=== PATIENT | male | born 1965 | race Two or more races ===

== ENCOUNTER → 2025-02-09 | Outpatient (CLI) | payer MEDICAID, SELFPAY ==
--- NOTE | 2025-02-09 14:01 | XR_ITS ---
Shoulder bilateral, 6 views Technique: Shoulder AP internal rotation, AP external rotation, Y view each shoulder total 6 views Exam date and time :12/16/2024, 1434 hrs. Indications: Shoulder pain beginning 2018. Findings: No fracture or dislocation involving either shoulder Mild to moderate narrowing glenohumeral joints No AC joint separation. No calcific tendinitis Impression: [id number] narrowing glenohumeral joints
== END | disposition home or self-care (01) ==
PROVIDERS: PCP Nurse Practitioner; Referring Provider Nurse Practitioner; Visit Provider Nurse Practitioner
DX: M25.812 Other specified joint disorders, left shoulder (principal); M25.811 Other specified joint disorders, right shoulder
CPT/HCPCS: 73030

== ENCOUNTER → 2025-06-30 | Outpatient (CLI) | payer MEDICAID, SELFPAY ==
--- NOTE | 2025-06-30 12:00 | XR_ITS ---
MRI shoulder, left, without contrast. Date and time: June 30, 2025 1221 hours INDICATIONS: History shoulder surgery 2019 with persistent pain Technique: Multiple axial, sagittal and coronal sections of the shoulder have been obtained. Siemens high-resolution 1.5 [facility] MRI scanner is utilized. Axial fat-suppressed sections, TR 2350, TE 18 T2-weighted coronal fat-saturated images, TR 3500, TE 7100 T1-weighted coronal images, TR 500, TE 15 T2-weighted sagittal fat-saturated images, TR 3500, TE 57 T1-weighted sagittal sections, TR 504, TE 13. Findings: Supraspinatus tendon insertion is intact. Infraspinatus tendon insertion is intact. Subscapularis insertion is intact. Subscapularis bursa is not seen. Long head of the biceps is in the bicipital groove. No definite tear of the biceps superior labral anchor is seen. Retraction of the musculotendinous junction of the rotator cuff is not seen . Tendinosis pattern is mild. Distance between the acromium and humeral head is 5.4 mm Atrophy of the supraspinatus muscle is mild . Atrophy of the infraspinatus muscle is mild. Sagittal sections demonstrate a horizontal acromion. Acromioclavicular joint demonstrates mild osteoarthritis . Osacromiale is not identified. Mild to moderate osteoarthritis glenohumeral joint Fraying and irregularity anterior superior labral margins. Bony glenoid fossa on the sagittal sections does not demonstrate osseous defect. Occult fracture or area of avascular necrosis is not seen. Acromioclavicular joint separation is not visible. Defect in the posterolateral margin of the humeral head is not seen Impression: Rotator cuff intact Mild to moderate osteoarthritis glenohumeral joint Fraying and irregularity anterior superior labral margins
--- NOTE | 2025-06-30 12:30 | XR_ITS ---
MRI shoulder, right, without contrast. Date and time: June 30, 2025 1253 hours INDICATIONS: Worsening shoulder pain decreased range of motion weakness 2 years Technique: Multiple axial, sagittal and coronal sections of the shoulder have been obtained. Siemens high-resolution 1.5 [facility] MRI scanner is utilized. Axial fat-suppressed sections, TR 2350, TE 18 T2-weighted coronal fat-saturated images, TR 3500, TE 7100 T1-weighted coronal images, TR 500, TE 15 T2-weighted sagittal fat-saturated images, TR 3500, TE 57 T1-weighted sagittal sections, TR 504, TE 13. Findings: Supraspinatus tendon insertion is intact. Infraspinatus tendon insertion is intact. Subscapularis insertion is intact. Subscapularis bursa is mild seen. Long head of the biceps is in the bicipital groove. No definite tear of the biceps superior labral anchor is seen. Retraction of the musculotendinous junction of the rotator cuff is not seen . Tendinosis pattern is moderate. Distance between the acromium and humeral head is or mm Atrophy of the supraspinatus muscle is mild . Atrophy of the infraspinatus muscle is mild. Sagittal sections demonstrate a horizontal acromion. Acromioclavicular joint demonstrates moderate osteoarthritis. Osacromiale is not identified. Labral margins intact. Bony glenoid fossa on the sagittal sections does not demonstrate osseous defect. Occult fracture or area of avascular necrosis is not seen. Acromioclavicular joint separation is not visible. Defect in the posterolateral margin of the humeral head is not seen Impression: Rotator cuff impingement syndrome Moderate rotator cuff tendinosis Rotator cuff and labral margins are intact
== END | disposition home or self-care (01) ==
LOC: SMRI 11:34
PROVIDERS: PCP Nurse Practitioner; Referring Provider Nurse Practitioner; Visit Provider Nurse Practitioner
DX: M19.012 Primary osteoarthritis, left shoulder (principal); M25.812 Other specified joint disorders, left shoulder; M25.811 Other specified joint disorders, right shoulder; M75.101 Unspecified rotator cuff tear or rupture of right shoulder, not specified as traumatic; M67.813 Other specified disorders of tendon, right shoulder
CPT/HCPCS: 73221